=== PATIENT | female | born 2005 | race African-American/Black ===

== ENCOUNTER → 2024-12-10 | Outpatient (REF) | payer OTHER ==
[~2024-12-10] MED LIST: DIPH-435 PO; PRED20TA PO
== END ==
LOC: M LAB REF 16:45
PROVIDERS: ATTEND Obstetrics & Gynecology
DX: R30.0 Dysuria (principal)

== ENCOUNTER 2025-03-05 17:34 | Emergency (ER) | payer OTHER ==
[~2025-03-05] VITALS: Ht 157.5 cm; Wt 72.7 kg
[2025-03-05] MEDS ORDERED: AZIT-12 PO (22:10)
[2025-03-05] MEDS: ACETAMINOPHEN 325 MG TAB PO ONE (22:28)
[2025-03-05] MEDS: AZITHROMYCIN 250 MG TABLET PO ONE (22:28)
[2025-03-05 22:33] VITALS: BP 131/69; TEMP 100.5; O2SAT 99
== END 2025-03-05 22:35 | disposition home or self-care (01) ==
LOC: M ED 17:34
DX: H66.91 Otitis media, unspecified, right ear (principal); M54.50 Low back pain, unspecified; G43.909 Migraine, unspecified, not intractable, without status migrainosus; Z88.0 Allergy status to penicillin; Z91.040 Latex allergy status; Z79.2 Long term (current) use of antibiotics; Z79.52 Long term (current) use of systemic steroids; Z79.899 Other long term (current) drug therapy